=== PATIENT | female | born 1955 | race Caucasian/White ===

== ENCOUNTER → 2019-12-02 | Outpatient (CLI) | payer MEDICARE, OTHER, SELFPAY ==
--- NOTE | 2019-12-02 13:30 | EMB_PTH ---
PATIENT: SHITAL PACHECO [facility] U[facility][id number] AGE/SX: 64/F ROOM: RE12/02/[address]: Dr. 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 AM:casey 12/04/19 COMMENT Case has been reviewed in consultation with Dr. Hylton who concurs with the above diagnosis. IDC:SJ MICROSCOPIC DESCRIPTION Slides are reviewed. GROSS DESCRIPTION Received in fixative is one container labeled with the patient's name and designated EM biopsy. The specimen consists of multiple fragments of hemorrhagic soft tissue that in aggregate measure 3 x 2.5 x 0.3 cm. The specimen is totally submitted in one cassette. / SJ:rg 12/03/19 TC:5 CPT: 20827
== END | disposition home or self-care (01) ==
LOC: LABSPEC 15:12
PROVIDERS: Referring Provider Obstetrics & Gynecology; Visit Provider Obstetrics & Gynecology
DX: N95.0 Postmenopausal bleeding (principal)
CPT/HCPCS: 88305

== ENCOUNTER → 2020-01-14 10:30 | Outpatient (CLI) | payer MEDICARE, OTHER, SELFPAY ==
--- NOTE | 2020-01-14 11:15 | EKG12_ITS ---
Test Reason : PRE OP Blood Pressure : / mmHG Vent. Rate : 070 BPM Atrial Rate : 070 BPM P-R Int : 178 ms QRS Dur : 088 ms QT Int : 396 ms P-R-T Axes : 044 -62 046 degrees QTc Int : 427 ms Normal sinus rhythm with sinus arrhythmia Left anterior fascicular block Abnormal ECG Confirmed by DONOVAN LAGUNAS, PAULO ([id number]), editor continuity and script CHYNA ROA ([id number]) on 01/18/2020 2:09:46 PM Referred By: Jovanny Mcgee Confirmed By:ANCELMO MAN MD
[2020-01-14 11:23] LABS: Hematocrit 41.6 % (37-47); Hemoglobin 13.7 g/dL (12.0-15.0); Mean Corp Hgb Conc 32.9 g/dL (32-36); Mean Corpuscular Hgb 31.9 pg (27.0-32.0); Mean Platelet Vol. 9.4 fl (6.2-12.0); Platelet Count 271 K/mm3 (150-450); RBC Distribution Width CV 13.4 % (11.6-14.6); RBC Distribution Width SD 47.2 fl (35.1-43.9); Red Blood Count 4.29 M/mm3 (4.2-5.4); White Blood Count 4.9 K/mm3 (4.4-11.0)
[2020-01-14 11:32] LABS: Prothrombin Time (Protime)PT. 12.4 SECONDS (11.7-14.9)
[2020-01-14 11:33] LABS: Partial Thromboplast Time 21.9 Seconds (24.1-36.2)
[2020-01-14 11:54] LABS: AST(SGOT) 22 U/L (15-37); Alanine Aminotransfer ALT/SGPT 35 U/L (13-56); Alkaline Phosphatase 61 U/L (45-117); Anion Gap 5 (5-15); BUN 14 mg/dL (7-18); BUN/Creat Ratio 17.9 RATIO (10-20); Calcium,Total 9.5 mg/dL (8.5-10.1); Chloride 106 mmol/L (98-107); Creatinine, Serum 0.78 mg/dL (0.55-1.02); EST Glomerular Filtration Rate 78 mL/min (>60); Est Glom Filt Rate - Afr Amer 95 mL/min (>60); Globulin 3.9 g/dL (2.2-4.2); Glucose 113 mg/dL (74-106); Potassium 4.3 mmol/L (3.5-5.1); Protein, Total 7.9 g/dL (6.4-8.2); Sodium Level 141 mmol/L (136-145)
== END ==
PROVIDERS: PCP Nurse Practitioner Family; Referring Provider Obstetrics & Gynecology; Visit Provider Obstetrics & Gynecology
DX: Z01.818 Encounter for other preprocedural examination (principal)
CPT/HCPCS: 36415; 80053; 85027; 85610; 85730; 86850; 86900; 86901; 93005

== ENCOUNTER → 2020-01-20 13:54 | Outpatient (CLI) | payer MEDICARE, OTHER, SELFPAY ==
[2020-01-15 13:15] VITALS: BMI 45.6
--- NOTE | 2020-01-20 13:55 | ECHOD_ITS ---
Reason For Study: PRE OP EXAM Procedure This was a 2D Doppler, Color Flow transthoracic echocardiogram. Exam performed in department. Left Ventricle Normal size and thickness. The estimated ejection fraction is 65 %. Stage 1 diastolic dysfunction. No regional wall motion abnormalities noted. Right Ventricle Normal size and thickness. Normal systolic function. Atria Normal left atrium. Normal right atrium. Normal atrial septum. Mitral Valve The mitral valve is structurally normal. No prolapse or stenosis seen. Tricuspid Valve Normal tricuspid valve. Unable to estimate RV systolic pressure due to insufficient tricuspid regurgitant envelope. Aortic Valve Normal aortic valve. Trisinus/trileaflet aortic valve. Pulmonic Valve Normal pulmonic valve. Trivial pulmonic valve insufficiency. Great Vessels Normal aortic root. Normal arch. Normal inferior vena cava. Inferior vena cava collapse with sniff. Pericardium/Pleural No pericardial effusion. MMode/2D Measurements & Calculations LVIDd: 5.5 cm IVSd: 0.96 cm Ao root diam: 3.1 cm LVIDs: 3.9 cm LVPWd: 0.99 cm RVDd: 2.9 cm FS: 28.4 % LAV(MOD-bp): 55.1 ml LA A4 area: 18.9 cm2 LA dimension(2D): 2.9 cm LAV(MOD-bp) Indexed: 23.9 ml/m2 LAV(MOD-sp2): 56.2 ml LAV(MOD-sp4): 55.0 ml RA A4 area: 14.7 cm2 Time Measurements MV dec time: 0.21 sec Doppler Measurements & Calculations MV E max santiago: 48.2 cm/sec Lat Peak E' Santiago: 7.0 cm/sec Med Peak E' Santiago: 4.8 cm/sec MV A max santiago: 61.6 cm/sec E/E' lat: 6.8 E/E' med: 10.0 MV E/A: 0.78 Ao V2 max: 119.0 cm/sec LV V1 max: 106.7 cm/sec PA V2 max: 86.1 cm/sec Ao max P.7 mmHg LV V1 max P.6 mmHg Ao V2 mean: 87.8 cm/sec LV V1 mean P.5 mmHg Ao mean P.3 mmHg LV V1 mean: 75.5 cm/sec Ao V2 VTI: 24.0 cm LV V1 VTI: 21.6 cm Interpretation Summary The estimated ejection fraction is 65 %. Stage 1 diastolic dysfunction. Unable to estimate RV systolic pressure due to insufficient tricuspid regurgitant envelope. The study was technically difficult. There is no comparison study available. Ordering Physician: Ward Teague Referring Physician: Nicki John Performed By: Colleen Aragon RDCS, RVT
== END ==
PROVIDERS: PCP Nurse Practitioner Family; Referring Provider Internal Medicine Cardiovascular Disease; Visit Provider Internal Medicine Cardiovascular Disease
DX: Z01.810 Encounter for preprocedural cardiovascular examination (principal); I44.4 Left anterior fascicular block; R94.31 Abnormal electrocardiogram [ECG] [EKG]
CPT/HCPCS: 93306

== ENCOUNTER → 2020-01-25 12:16 | Outpatient (CLI) | payer MEDICARE, OTHER, SELFPAY ==
[2020-01-15 13:15] VITALS: BMI 45.6
--- NOTE | 2020-01-25 12:17 | STEWCON_ITS ---
Reason For Study: PREOPERATIVE Stress Results Protocol: Casey Protocol WITH DEFINITY Maximum Predicted HR: 155 bpm Target HR: 132 bpm % Maximum Predicted HR: 86 % DurationHeart Rate Stage (mm:ss) (bpm) BP Comment BASELINE 79 130/824 CC DEFINITY STAGE 1 3:00 133 158/90SOB STAGE 2 0:15 133 / INCREASED SOB RECOVERY 84 120/82 Stress Duration: 3:15 mm:ss Maximum Stress HR: 133 bpm Baseline Echocardiogram Findings The estimated ejection fraction is 65 %. Stress Echo Wall motion Data Resting WM Intermediate WM Stress WM Resting Wall Motion Wall Motion Stress No regional wall motion Posterior-Basal: Mildly abnormalities noted. hypokinetic. Infero-Basal: Mildly hypokinetic. EKG Data The baseline ECG displays normal sinus rhythm. The patient exercised according to the regular Casey protocol for a total duration of 3:16. The maximum heart rate attained was 134 beats per minute. This was 86% of maximum predicted heart rate. The patient exercised into stage 2 of the Casey protocol. During stress, there were no ST or T wave changes noted to suggest ischemia. No clinical angina was noted. No arrhythmias noted. Interpretation Summary The estimated ejection fraction is 65 %. Posterior-Basal: Mildly hypokinetic Infero-Basal: Mildly hypokinetic Abnormal, adequate, treadmill echocardiogram. Positive for ischemia by echocardiographic criteria. No EKG evidence of ischemia. Patient appeared to develop mild inferior posterior hypokinesis at peak exercise. Poor exercise capacity for age. Appropriate blood pressure response to exercise. Test terminated due to the attainment of target heart rate and dyspnea. Final LVEF of 55%. Poor echo windows requiring Definity agent make interpretation problematic. Patient tolerated the procedure well. The study was technically difficult. Contrast injection was performed. Ordering Physician: Ward Teague Referring Physician: Ward Teague Performed By: Brittany Garcia, EMETERIO, RVT
== END ==
PROVIDERS: PCP Nurse Practitioner Family; Referring Provider Internal Medicine Cardiovascular Disease; Visit Provider Internal Medicine Cardiovascular Disease
DX: Z01.810 Encounter for preprocedural cardiovascular examination (principal); I44.4 Left anterior fascicular block; R94.31 Abnormal electrocardiogram [ECG] [EKG]
CPT/HCPCS: 93017; 93350; Q9957; A4216; C8928

== ENCOUNTER 2020-01-29 06:46 | Day surgery (SDC) | payer MEDICARE, OTHER, SELFPAY ==
--- NOTE | 2020-01-15 01:38 | HP_ITS ---
HPI HPI History of Present Illness Surgical H&P: Yes Details: Mrs. Schmitz is a very pleasant 64-year-old female, nondiabetic, nonhypertensive, lifelong non-smoker, no significant cholesterol and no known coronary disease in the past who was referred to us for cardiac re- stratification for robotic hysterectomy with BSO due to PMB, simple hyperplasia. She was seen in [facility] on 01/14/2020 and EKG was performed which showed left anterior hemiblock and no previous EKGs. On further history she is a nondiabetic, nonhypertensive, no previous coronary history and is on estrogen replacement therapy only. Of note she is G 11, P7, premature 1, induced 0, spontaneous abortions 3. The EKG in question took place on 01/14/2020 which showed normal sinus rhythm, left axis deviation, left anterior hemiblock, no previous myocardial infarction noted. On further history, the patient states that she has had progressively worsening dyspnea on exertion and shortness of breath over the last 6 to 12 months. In addition she complains of slight lower extremity edema on the left side only. She has no positive family history of premature coronary artery disease. Patient does complain of chest tightness when she gets anxious, but not with exertion. She did have bilateral knee surgery 2 years ago and reports that she had an EKG at that time but apparently this was unavailable at the time of her preop testing. In addition the patient complains of snoring, daytime somnolence, but is never had a sleep study. She denies ever having a CVA. In our office today her blood pressure is 120/60, pulse is 80 and regular. Her physical exam demonstrates clear lungs bilaterally, regular rate and rhythm, normal S1/S2, no S3, S4 or murmurs are detected. She has 2+ carotid upstroke bilaterally and no carotid bruits. She has no edema. Lipids are pending. EKG is as above. Intake Vital Signs 01/15/20 Height 5 ft 6 in 01/15/20 Weight: 283 lb 01/15/20 BMI 45.6 01/15/20 BP 120/60 01/15/20 Blood Pressure Location Lt brachial 01/15/20 Position Sitting 01/15/20 Respiration 20 H 01/15/20 Pulse 80 01/15/20 Pulse Source Auscultation Intake Visit Reasons: ABN EKG, SURGERY (Delisa BECERRA) Allergies No Known Allergies Allergy (Verified 01/15/20 09:23) Medications Biotin 10,000 mcg PO DAILY 01/13/20 [History Confirmed 01/14/20] Calcium Carb/D3/Magnesium/Zinc [Rwuyosk-Ygq-Fpts-Vit D Tablet] 2 ea PO DAILY 01/13/20 [History Confirmed 01/14/20] Cholecalciferol (Vitamin D3) [Vitamin D3] 10,000 unit PO DAILY 01/13/20 [History Confirmed 01/14/20] Warren-3/Dha/Epa/Fish Oil [Warren 3 500 Softgel] 1 ea PO DAILY 01/13/20 [History Confirmed 01/14/20] Potassium (Otc) [Potassium Otc] 198 mg PO DAILY 01/13/20 [History Confirmed 01/14/20] Vit C/E/Zn/Coppr/Lutein/Zeaxan [Preservision Areds 2 Softgel] 1 ea PO DAILY 01/13/20 [History Confirmed 01/14/20] Vitamin B Complex 2 ea PO DAILY 01/13/20 [History Confirmed 01/14/20] Vitamin E 1,200 units PO DAILY 01/13/20 [History Confirmed 01/14/20] aspirin 81 mg tablet,delayed release 81 mg PO DAILY 01/13/20 [History Confirmed 01/14/20] medroxyprogesterone 10 mg tablet 10 mg PO .COMPLEX 01/15/20 [History Confirmed 01/15/20] [facility] Medical History (Updated 01/15/20 @ 13:25 by Eden Mclain) Pre-operative cardiovascular exam, new EKG abnormalities c/w ischemia (Acute) Left anterior fascicular block (Acute) Abnormal EKG (Acute) Hyperlipidemia (Chronic) Surgical History (Updated 01/15/20 @ 09:29 by Eden Mclain) History of (Chronic 08/09/90) History of bilateral knee arthroplasty (Chronic 08/2016) History of hernia repair (Chronic 1989) Family History (Updated 01/15/20 @ 09:25 by Eden Mclain) Mother Breast cancer Social History (Updated 01/15/20 @ 13:[address] Ward Teague MD) Smoking Status: Never smoker ROS Const Const: Negative for fatigue, weakness, body ache, fever(s), headache(s), chills, frequent falls, night sweats, daytime sleepiness, difficulty sleeping, excessive sweating, weight gain, weight loss, increased appetite, poor appetite, anorexia or other Eyes Eyes: Negative for blind spots, loss of peripheral vision, transient loss of vision, blurry vision, change in vision, double vision, floaters, tunnel vision or other ENT ENT: Negative for headache(s), dizziness, hearing loss, tinnitus, Nosebleed/epistaxis, balance problems, post nasal drip, lip swelling, tongue swelling, bleeding gums, hoarseness, neck pain, dry mouth or other Cardio Chest Pain: No Resp Respiratory: Negative for SOB with activity, SOB at rest, SOB orthopnea\SOB lying down, Coughing up blood/hemoptysis, chest congestion, pain on inspiration, snoring, stridor, wheezing, crackles, paroxysmal nocturnal dyspnea or other GI GI: Negative nausea, vomiting, heartburn, constipation, belching, bloating, cramping, vomiting blood/hematemesis, bright, red blood in stools, black,tarry stools, loose stools, Difficulty Swallowing or other : Negative for hematuria, frequent nighttime urination/ nocturia, erectile dysfunction or abnormal vaginal bleeding Musc Musc: Negative for muscle aches/ myalgia, muscle weakness, joint pain or balance problems Skin Skin: Negative redness, non-healing lesions, rash, unusual bruising, skin ulcer, wounds, jaundice or other Neuro Neuro: Negative for dizziness, lightheadedness, near syncope, syncope, orthostatic symptoms, frequent falls, headache(s), weakness, confusion, memory loss, restless legs, blurry vision, double vision, vertigo, seizures, lack of coordination or other Panfilo Hematologic/Lymphatic: Negative for easy bleeding, easy bruising, enlarged lymph nodes or other Endo Endo: Negative for fatigue, cold intolerance, heat intolerance, excessive sweating, flushing, increased thirst/drinking, increased hunger, hair loss, hair growth or other Psych Psych: Negative for anxiety, depression, thoughts of harming anyone, thoughts of harming yourself, visual hallucinations, panic attacks or audible hallucinations Allergy Allergy/Immunology: Negative for throat swelling, Negative for tongue swelling, Negative for hives, Negative for rash, Negative for lip swelling Cardiology Exam Const Appearance: cooperative, healthy appearing and no acute distress Nutritional Appearance: well nourished Orientation: alert, oriented x3 and oriented to person Head Head: normal to inspection, normocephalic and atraumatic Nose: external nose normal Face and Sinus: face symmetric Mouth: oral mucosae normal Eyes General: appearance normal, both eyes and all related structures Eyelids: eyelids normal Conjunctivae: conjunctivae normal Pupils: PERRL and normal by confrontation EOM: EOM intact bilaterally Neck Neck: normal visual inspection and full ROM Carotids: normal carotid upstroke Chest Chest inspection: normal inspection of the chest Auscultation: Bilateral: Clear to Auscultation Cardio Palpation: normal PMI Rate: regular rate Rhythm: regular rhythm Heart sounds: S1 normal and S2 normal GI GI: normal to inspection, no hepatosplenomegaly and bowel sounds present Neuro General: alert, awake, oriented x3, CN's II-XI intact bilaterally and moves all extremities Skin Skin: no rashes or lesions noted Extremities Pulses: Normal: Right Femoral Pulse, Left Femoral Pulse, Right Dorsalis Pedis Pulse, Left Dorsalis Pedis Pulse, Right Posterior Tibial Pulse, Left Posterior Tibial Pulse, Right Radial Pulse, Left Radial Pulse Lower Extremity Edema: None: Bilateral Psych Psychological: normal affect Assessment & Plan 1. Pre-operative cardiovascular exam, new EKG abnormalities c/w ischemia Z01.810; R94.31 Plan 1. Preoperative stratification: The patient has had progressively worsening dyspnea on exertion over the last 6 months to a year, trivial unilateral lower extremity edema, no exertional anginal symptoms, abnormal EKG with newly discovered left anterior hemiblock, and need for robotic hysterectomy with BSO. Given the patient signs and symptoms and risk factors I recommend that she undergo a 2D echo with Doppler to evaluate her LV function, pulmonary pressures and valvular status. In addition I recommend that she undergo a treadmill echocardiogram to assess her exercise capacity, blood pressure response to exercise, and evaluation of ischemia. If either 1 of these are grossly abnormal, the patient may require diagnostic coronary angiogram. If her stress test is negative however for inducible ischemia should be deemed at low risk for noncardiac surgery. Her left anterior hemiblock may be an electrical phenomenon only and may not materially impact on the patient's cardiac condition. In addition after her surgeries been completed I recommend that she undergo a sleep study as she has signs and symptoms of possible undiagnosed and untreated obstructive sleep apnea. Orders Orders: Echo Complete Today Dr. Ward Teague MD Stress Test Echo W/Contrast Today Dr. Ward Teague MD 2. Hyperlipidemia E78.5 Plan 2. Hyperlipidemia: We will obtain a fasting lipid profile. Would recommend treating her LDL of greater than 130. 3. Return office in 6 months. This note was generated using a voice recognition system and there may be incorrect words, spelling or punctuation that were not noted when reviewing the office note prior to saving. Orders Orders: Lipid Profile Today Dr. Ward Teague MD Liver Profile Today Dr. Ward Teague MD Plan Detail Other Orders Orders: Echo Complete Today I44.4 Dr. Ward Teague MD Stress Test Echo W/Contrast Today I44.4 Dr. Ward Teague MD Polysomnography 2 Months G47.10, I44.4 Dr. Ward Teague MD Other Medications On Hold: medroxyprogesterone (Provera) Hold Comment: for surgery 10 mg PO 1 tablet daily the first 12 days of each month; Eden A Rayne aspirin Hold Comment: for surgery 81 mg PO DAILY Eden A Rayne Follow Up +6M (Ho) Coding Level of Care Code Off vis,est,level 4 Diagnoses Pre-operative cardiovascular exam, new EKG abnormalities c/w ischemia Z01.810; R94.31 Hyperlipidemia E78.5 Coding Level of Care Code Off vis,est,level 4 Diagnoses Pre-operative cardiovascular exam, new EKG abnormalities c/w ischemia Z01.810; R94.31 Hyperlipidemia E78.5 01/15/20 1338 <Electronically signed by Ward Teague MD> Date _ Ward Teague MD
[2020-01-15 13:15] VITALS: BMI 45.6
[2020-01-26 13:11] VITALS: BMI 45.6
--- NOTE | 2020-01-26 13:28 | RAD_ITS ---
STUDY: X-RAY CHEST REASON FOR EXAM: Female, 64 years old. Pre heart cath, pt. states having chest tightness, abnormal stress test and EKG TECHNIQUE: PA and lateral views of the chest. COMPARISON: None. FINDINGS: The lungs are clear and expanded. Scattered calcified granulomas. There is no demonstrated pleural abnormality. Normal size heart. Normal mediastinum and barbra. Normal visualized pulmonary arteries. Normal visualized aortic arch and descending thoracic aorta. There are diffuse degenerative changes of the visualized thoracic spine. Mild dextroscoliosis. Normal visualized ribs, clavicles, and shoulders. There is no demonstrated abnormality of the visualized soft tissue structures of the upper abdomen. RAD/Chest PA and Lateral IMPRESSION: No acute abnormality is seen. Electronically Signed: Hilario Strickland, at 13:48 EDT , Service support ,
[2020-01-28 09:48] VITALS: BMI 45.6
--- NOTE | 2020-01-29 09:09 | CL.D_ITS ---
Patient Name: SHITAL PACHECO Study Date: 01/29/2020 Performing: Ward Teague MD Ht: 66.14 inches 168 cm : 1955 Wt: 282.19 lbs 128 kg Age: 64 Gender: female BSA: 2.32 PROCEDURE(S) PERFORMED AH59-RLK/COR/LV CLINICAL PROFILE AND INDICATIONS Indications: Suspected CAD Heart Failure: None Stress/Imaging Date: 01/25/2020Stress Echocardiogram: Positive Low Risk Angina Classification Anginal Classification w/in 2 Weeks: Anginal Equivalent Dyspnea CAD Presentations: Other: Dyspnea on exertion Comorbidities/Risk Factors: Hypertension CONCLUSIONS Normal coronary arteries Normal LV size, wall motion,and systolic function Normal Left Ventricular systolic function LVEF: by LV gram 65 % Elevated Left Ventricular End Diastolic Pressure RECOMMENDATIONS Management as per referring Plant Hr Manager Start lasix 20mg po daily for elevated LVEDP and dyspnea. Pt is at low risk for non-cardiac surgery. Consider sleep study for possible MARIAM. DESCRIPTION OF PROCEDURE The patient arrived to the procedure lab. The risks and benefits of the procedure as well as a full d escription of our services here and current unavailability of surgical backup were fully explained to the patient and/or their significant other prior to the catheterization. The Timeout was completed, verifying the correct patient and procedure. The patient's procedural site was prepped and draped in the usual fashion. Local anesthetic was given subcutaneously to right radial region with Lidocaine 2% . Using a modified Seldinger technique, arterial access was obtained via the right radial artery, a 6 Fr sheath was inserted. Left Coronary Artery selective angiography was performed in multiple views u sing a 5 Fr. 4.0 [place] catheter. Right Coronary Artery selective angiography was then performed in mu ltiple views using a 5 Fr. 4.0 [place] catheter. Left Ventriculography was performed in PACE projection using a 5 Fr. Pigtail catheter. LV to AO pullback pressures were then recorded.The arterial sheath was pulled and a TR Band was applied for hemostasis-12 cc air CORONARY ANGIOGRAPHY DOMINANCE: Right Dominant LEFT HEART ASSESSMENT Left Ventricular Ejection Fraction: by LV Gram 65 % Normal LV wall motion Normal Left Ventricular systolic function Normal Left Ventricular systolic function LVEDP: 25 mmHg LEFT MAIN: Angiographically normal LEFT ANTERIOR DESCENDING ARTERY: Angiographically normal CIRCUMFLEX ARTERY: Angiographically normal RIGHT CORONARY ARTERY: Angiographically normal COMPLICATIONS No Complications PROCEDURE MEDICATIONS Versed 1 mg IV Fentanyl 50 mcg IV Oxygen: 2 L/min via nasal cannula Heparin diluted in 23cc Heparinized saline. Patient given 10cc IA of this solution. 01/29/2020 08:43: 09 Verapamil 2.5mg, Ntg 100mcgs, 2000 units of Heparin diluted in 23cc Heparinized saline. Patient give n 10cc IA of this solution. 01/29/2020 08:43:09 SUMMARY OF HEMODYNAMIC DATA Time AIR REST ECG 08:26:18 AO 141/80 (106) SA 08:46:03 LV 143/0, 23 08:53:49 LV 147/-5, 27 08:53:56 LVp 146/-5, 28 08:54:07 AOp 140/79 (107) 08:54:12 Signed By Ward Teague MD On 01/29/2020 09:08:18 Ward Teague MD
== END 2020-01-29 10:40 | disposition home or self-care (01) ==
PROVIDERS: PCP Nurse Practitioner Family; Referring Provider Internal Medicine Cardiovascular Disease; Visit Provider Internal Medicine Cardiovascular Disease
DX: R07.89 Other chest pain (principal); R94.31 Abnormal electrocardiogram [ECG] [EKG]; I10 Essential (primary) hypertension; E78.5 Hyperlipidemia, unspecified; Z79.82 Long term (current) use of aspirin; Z79.899 Other long term (current) drug therapy
CPT/HCPCS: 71046; 93458; 99152; 99153; J7040; Q9967; C1769; C1894

== ENCOUNTER 2020-02-26 05:26 | Day surgery (SDC) | payer MEDICARE, OTHER, SELFPAY ==
--- NOTE | 2020-01-15 01:38 | HP_ITS ---
HPI HPI History of Present Illness Surgical H&P: Yes Details: Mrs. Schmitz is a very pleasant 64-year-old female, nondiabetic, nonhypertensive, lifelong non-smoker, no significant cholesterol and no known coronary disease in the past who was referred to us for cardiac re- stratification for robotic hysterectomy with BSO due to PMB, simple hyperplasia. She was seen in [facility] on 01/14/2020 and EKG was performed which showed left anterior hemiblock and no previous EKGs. On further history she is a nondiabetic, nonhypertensive, no previous coronary history and is on estrogen replacement therapy only. Of note she is G 11, P7, premature 1, induced 0, spontaneous abortions 3. The EKG in question took place on 01/14/2020 which showed normal sinus rhythm, left axis deviation, left anterior hemiblock, no previous myocardial infarction noted. On further history, the patient states that she has had progressively worsening dyspnea on exertion and shortness of breath over the last 6 to 12 months. In addition she complains of slight lower extremity edema on the left side only. She has no positive family history of premature coronary artery disease. Patient does complain of chest tightness when she gets anxious, but not with exertion. She did have bilateral knee surgery 2 years ago and reports that she had an EKG at that time but apparently this was unavailable at the time of her preop testing. In addition the patient complains of snoring, daytime somnolence, but is never had a sleep study. She denies ever having a CVA. In our office today her blood pressure is 120/60, pulse is 80 and regular. Her physical exam demonstrates clear lungs bilaterally, regular rate and rhythm, normal S1/S2, no S3, S4 or murmurs are detected. She has 2+ carotid upstroke bilaterally and no carotid bruits. She has no edema. Lipids are pending. EKG is as above. Intake Vital Signs 01/15/20 Height 5 ft 6 in 01/15/20 Weight: 283 lb 01/15/20 BMI 45.6 01/15/20 BP 120/60 01/15/20 Blood Pressure Location Lt brachial 01/15/20 Position Sitting 01/15/20 Respiration 20 H 01/15/20 Pulse 80 01/15/20 Pulse Source Auscultation Intake Visit Reasons: ABN EKG, SURGERY (Delisa BECERRA) Allergies No Known Allergies Allergy (Verified 01/15/20 09:23) Medications Biotin 10,000 mcg PO DAILY 01/13/20 [History Confirmed 01/14/20] Calcium Carb/D3/Magnesium/Zinc [Rihfvma-Szr-Rnqn-Vit D Tablet] 2 ea PO DAILY 01/13/20 [History Confirmed 01/14/20] Cholecalciferol (Vitamin D3) [Vitamin D3] 10,000 unit PO DAILY 01/13/20 [History Confirmed 01/14/20] Lavon-3/Dha/Epa/Fish Oil [Lavon 3 500 Softgel] 1 ea PO DAILY 01/13/20 [History Confirmed 01/14/20] Potassium (Otc) [Potassium Otc] 198 mg PO DAILY 01/13/20 [History Confirmed 01/14/20] Vit C/E/Zn/Coppr/Lutein/Zeaxan [Preservision Areds 2 Softgel] 1 ea PO DAILY 01/13/20 [History Confirmed 01/14/20] Vitamin B Complex 2 ea PO DAILY 01/13/20 [History Confirmed 01/14/20] Vitamin E 1,200 units PO DAILY 01/13/20 [History Confirmed 01/14/20] aspirin 81 mg tablet,delayed release 81 mg PO DAILY 01/13/20 [History Confirmed 01/14/20] medroxyprogesterone 10 mg tablet 10 mg PO .COMPLEX 01/15/20 [History Confirmed 01/15/20] [facility] Medical History (Updated 01/15/20 @ 13:25 by Eden Mclain) Pre-operative cardiovascular exam, new EKG abnormalities c/w ischemia (Acute) Left anterior fascicular block (Acute) Abnormal EKG (Acute) Hyperlipidemia (Chronic) Surgical History (Updated 01/15/20 @ 09:29 by Eden Mclain) History of (Chronic 08/09/90) History of bilateral knee arthroplasty (Chronic 08/2016) History of hernia repair (Chronic 1989) Family History (Updated 01/15/20 @ 09:25 by Eden Mclain) Mother Breast cancer Social History (Updated 01/15/20 @ 13:[address] Ward Teague MD) Smoking Status: Never smoker ROS Const Const: Negative for fatigue, weakness, body ache, fever(s), headache(s), chills, frequent falls, night sweats, daytime sleepiness, difficulty sleeping, excessive sweating, weight gain, weight loss, increased appetite, poor appetite, anorexia or other Eyes Eyes: Negative for blind spots, loss of peripheral vision, transient loss of vision, blurry vision, change in vision, double vision, floaters, tunnel vision or other ENT ENT: Negative for headache(s), dizziness, hearing loss, tinnitus, Nosebleed/epistaxis, balance problems, post nasal drip, lip swelling, tongue swelling, bleeding gums, hoarseness, neck pain, dry mouth or other Cardio Chest Pain: No Resp Respiratory: Negative for SOB with activity, SOB at rest, SOB orthopnea\SOB lying down, Coughing up blood/hemoptysis, chest congestion, pain on inspiration, snoring, stridor, wheezing, crackles, paroxysmal nocturnal dyspnea or other GI GI: Negative nausea, vomiting, heartburn, constipation, belching, bloating, cramping, vomiting blood/hematemesis, bright, red blood in stools, black,tarry stools, loose stools, Difficulty Swallowing or other : Negative for hematuria, frequent nighttime urination/ nocturia, erectile dysfunction or abnormal vaginal bleeding Musc Musc: Negative for muscle aches/ myalgia, muscle weakness, joint pain or balance problems Skin Skin: Negative redness, non-healing lesions, rash, unusual bruising, skin ulcer, wounds, jaundice or other Neuro Neuro: Negative for dizziness, lightheadedness, near syncope, syncope, orthostatic symptoms, frequent falls, headache(s), weakness, confusion, memory loss, restless legs, blurry vision, double vision, vertigo, seizures, lack of coordination or other Panfilo Hematologic/Lymphatic: Negative for easy bleeding, easy bruising, enlarged lymph nodes or other Endo Endo: Negative for fatigue, cold intolerance, heat intolerance, excessive sweating, flushing, increased thirst/drinking, increased hunger, hair loss, hair growth or other Psych Psych: Negative for anxiety, depression, thoughts of harming anyone, thoughts of harming yourself, visual hallucinations, panic attacks or audible hallucinations Allergy Allergy/Immunology: Negative for throat swelling, Negative for tongue swelling, Negative for hives, Negative for rash, Negative for lip swelling Cardiology Exam Const Appearance: cooperative, healthy appearing and no acute distress Nutritional Appearance: well nourished Orientation: alert, oriented x3 and oriented to person Head Head: normal to inspection, normocephalic and atraumatic Nose: external nose normal Face and Sinus: face symmetric Mouth: oral mucosae normal Eyes General: appearance normal, both eyes and all related structures Eyelids: eyelids normal Conjunctivae: conjunctivae normal Pupils: PERRL and normal by confrontation EOM: EOM intact bilaterally Neck Neck: normal visual inspection and full ROM Carotids: normal carotid upstroke Chest Chest inspection: normal inspection of the chest Auscultation: Bilateral: Clear to Auscultation Cardio Palpation: normal PMI Rate: regular rate Rhythm: regular rhythm Heart sounds: S1 normal and S2 normal GI GI: normal to inspection, no hepatosplenomegaly and bowel sounds present Neuro General: alert, awake, oriented x3, CN's II-XI intact bilaterally and moves all extremities Skin Skin: no rashes or lesions noted Extremities Pulses: Normal: Right Femoral Pulse, Left Femoral Pulse, Right Dorsalis Pedis Pulse, Left Dorsalis Pedis Pulse, Right Posterior Tibial Pulse, Left Posterior Tibial Pulse, Right Radial Pulse, Left Radial Pulse Lower Extremity Edema: None: Bilateral Psych Psychological: normal affect Assessment & Plan 1. Pre-operative cardiovascular exam, new EKG abnormalities c/w ischemia Z01.810; R94.31 Plan 1. Preoperative stratification: The patient has had progressively worsening dyspnea on exertion over the last 6 months to a year, trivial unilateral lower extremity edema, no exertional anginal symptoms, abnormal EKG with newly discovered left anterior hemiblock, and need for robotic hysterectomy with BSO. Given the patient signs and symptoms and risk factors I recommend that she undergo a 2D echo with Doppler to evaluate her LV function, pulmonary pressures and valvular status. In addition I recommend that she undergo a treadmill echocardiogram to assess her exercise capacity, blood pressure response to exercise, and evaluation of ischemia. If either 1 of these are grossly abnormal, the patient may require diagnostic coronary angiogram. If her stress test is negative however for inducible ischemia should be deemed at low risk for noncardiac surgery. Her left anterior hemiblock may be an electrical phenomenon only and may not materially impact on the patient's cardiac condition. In addition after her surgeries been completed I recommend that she undergo a sleep study as she has signs and symptoms of possible undiagnosed and untreated obstructive sleep apnea. Orders Orders: Echo Complete Today Dr. Ward Teague MD Stress Test Echo W/Contrast Today Dr. Ward Teague MD 2. Hyperlipidemia E78.5 Plan 2. Hyperlipidemia: We will obtain a fasting lipid profile. Would recommend treating her LDL of greater than 130. 3. Return office in 6 months. This note was generated using a voice recognition system and there may be incorrect words, spelling or punctuation that were not noted when reviewing the office note prior to saving. Orders Orders: Lipid Profile Today Dr. Ward Teague MD Liver Profile Today Dr. Ward Teague MD Plan Detail Other Orders Orders: Echo Complete Today I44.4 Dr. Ward Teague MD Stress Test Echo W/Contrast Today I44.4 Dr. Ward Teague MD Polysomnography 2 Months G47.10, I44.4 Dr. Ward Teague MD Other Medications On Hold: medroxyprogesterone (Provera) Hold Comment: for surgery 10 mg PO 1 tablet daily the first 12 days of each month; Eden A Rayne aspirin Hold Comment: for surgery 81 mg PO DAILY Eden A Rayne Follow Up +6M (Ho) Coding Level of Care Code Off vis,est,level 4 Diagnoses Pre-operative cardiovascular exam, new EKG abnormalities c/w ischemia Z01.810; R94.31 Hyperlipidemia E78.5 Coding Level of Care Code Off vis,est,level 4 Diagnoses Pre-operative cardiovascular exam, new EKG abnormalities c/w ischemia Z01.810; R94.31 Hyperlipidemia E78.5 01/15/20 1338 <Electronically signed by Ward Teague MD> Date _ Ward Teague MD
[2020-01-28 09:48] VITALS: BMI 45.6
--- NOTE | 2020-02-25 09:46 | PCM.HP.BLA ---
History and Physical Date of Admission: 02/26/20 Surgical History and Physical Melania Schmitz, a 64 year old female 7 1 3 0 7, presents for RAVH/BSO on February 26, 2020 at 7:30. 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 Had US done at [facility] with thickened Endometrial lining present. Prior ventral hernia repair with mesh per Cameron Angelo. Additional comments are: Referred by Nicki Ruiz CNM.; Additional comments are: u/s shows 9.5 cm uterus, normal ovaries, EM thickness 2.2 mm vs cm; Additional comments are: EMBx with simple hyperplasia. MEDICATIONS HISTORY: Current medications prescribed by our practice are: 1. Provera 10 mg tablet, take 1 pill by mouth the first 12 days of each month Patient is also takin. Vitamin B Complex tablet, One pill by mouth once a day ALLERGIES: NKDA Infections - Chicken pox childhood Illnesses - Depression Accidents - None Hospitalizations - Childbirth and see surgery Review of Systems: GENERAL - Denies fever, or chills SKIN - Denies skin changes EYES - Denies visual changes EARS - Denies difficulty hearing NOSE - Denies nasal congestion or bleeding MOUTH - Denies sore throat or difficulty swallowing NECK - Denies pain or swelling RESPIRATORY - Denies shortness of breath or wheezing CARDIOVASCULAR - Denies palpitations or chest pain GASTROINTESTINAL - Denies nausea, vomiting, diarrhea, constipation GENITOURINARY - Denies dysuria, frequency of urination, incontinence of urine MUSCULOSKELETAL - Denies joint or muscle pain NEUROLOGICAL - Denies localized numbness or weakness PSYCHIATRIC - Denies depression or anxiety ENDOCRINE - Denies heat or cold intolerance, weight loss or gain HEMATO-IMMUNOLOGIC - Denies excesive bleeding with cuts SOCIAL HISTORY: Alcohol Use - denies drinking Smoking - denies smoking Diet - no special diet Lifestyle - moderate stress lifestyle and Exercise - minimal Seat Belt Use - always Employer - [employer] 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 Maternal Grandfather: Hypertension. MENSTRUAL HISTORY: LMP Known?- Postmenopausal PAST PREGNANCIES: Total Pregnancies - 11; Full Term Pregnancies - 7; Premature - 1; Abortions, Induced - 0; Abortions, Spontaneous - 3; Ectopics - 0; Multiple Births - 0; Living Children - 7 SURGICAL HISTORY: 1. 08/09/1990 ; - Distress 2. 08/2016 Bilateral Knee Repair 3. 1989 Hernia Repair PHYSICAL EXAM BP- 122/78 Sitting, Left arm, large cuff Weight- 281.14871 lbs Height- 64 inch BMI:48.33 CONSTITUTIONAL - well nourished, well developed, looks like stated age and obese SKIN - no rash or lesions HEENT - Normocephalic, atraumatic, sclerae anicteric. EOMI. NEUROLOGICAL - alert, oriented, no focal signs PSYCHIATRIC - alert, oriented to time, place, and person and mood appropriate External Genital Vagina - non-tender without lesions Urethra/Urethral Meatus - non-tender Bladder - non-tender Vagina - vaginal martinez are pink and moist without loss of rugae and no evidence of atropy Cervix - without cervical motion tenderness and has normal size and features without evident lesions Uterus - multiparous size 6 cm & wt 75-125 g and exam compromised by habitus Adnexa - clear without masses or tenderness ASSESSMENT/PLAN: 1. Postmenopausal Bleeding; simple hyperplasia EMBx with simple EM hyperplasia. Discussed need to proceed with a D and C and patient desires proceeding with RAVH/BSO. Discussed RBAs and all questions answered. Cardiac clearance received per Dr. Teague. Procedure Criteria Procedure Type: Essential Procedure Essential: Yes Criteria Statement: On 12/01/2019 the [facility] ([facility]) Public Order signed by [facility] Director Christelle Pringle M.D., regarding the Management of Non-Essential Surgeries and Procedures for the purpose of preserving Personal Protective Equipment (PPE) and critical hospital capacity and resources within [place] went into effect as of 12/02/2019 at 5:00PM. According to the [facility] Public Order: This action will remain in full force and effect until the State of Emergency declared by the Governor no longer exists or the Director of the [facility] rescinds or modifies this Order. This [facility] order stated all non-essential or elective surgeries and procedures that utilize PPE should be delayed unless there is undue risk to the current or future health of a patient. After reviewing the aforementioned [facility] Public Order and the patient's clinical case, I have determined that the scheduled procedure meets the criteria to go forward. Risk to Patient if Procedure Delayed: Risk of rapidly worsening to severe symptoms if delayed
[2020-02-26] VITALS (15 sets, daily range): BP systolic 87–128; BP diastolic 42–73; PULSE 53–75; RESP 14–18; TEMP 36.5–37.1; O2SAT 92–100; BMI 45.7
[2020-02-26] MEDS: Lactated Ringers 1,000 ML 100 ML IV ×2 (05:59→06:00)
[2020-02-26 06:03] LABS: Hematocrit 42.4 % (37-47); Hemoglobin 13.6 g/dL (12.0-15.0); Mean Corp Hgb Conc 32.1 g/dL (32-36); Mean Corpuscular Volume 96.6 fL (81-99); Mean Platelet Vol. 9.1 fl (6.2-12.0); Platelet Count 249 K/mm3 (150-450); RBC Distribution Width CV 13.1 % (11.6-14.6); RBC Distribution Width SD 46.5 fl (35.1-43.9); Red Blood Count 4.39 M/mm3 (4.2-5.4); White Blood Count 7.1 K/mm3 (4.4-11.0)
[2020-02-26 06:20] LABS: AST(SGOT) 25 U/L (15-37); Alanine Aminotransfer ALT/SGPT 34 U/L (13-56); Albumin, Serum 3.8 g/dL (3.2-5.0); Alkaline Phosphatase 62 U/L (45-117); Anion Gap 6 (5-15); BUN 21 mg/dL (7-18); BUN/Creat Ratio 23.5 RATIO (10-20); Calcium,Total 9.6 mg/dL (8.5-10.1); Chloride 104 mmol/L (98-107); Creatinine, Serum 0.89 mg/dL (0.55-1.02); EST Glomerular Filtration Rate 67 mL/min (>60); Est Glom Filt Rate - Afr Amer 81 mL/min (>60); Estimated Creatinine Clearance 58.99 ml/min; Globulin 3.7 g/dL (2.2-4.2); Glucose 119 mg/dL (74-106); Potassium 4.6 mmol/L (3.5-5.1); Protein, Total 7.5 g/dL (6.4-8.2); Sodium Level 140 mmol/L (136-145)
--- NOTE | 2020-02-26 07:30 | HYST_PTH ---
PATIENT: SHITAL PACHECO [place] [facility] [id number] AGE/SX: 64/F ROOM: RE02/26/[address]: Dr. Jovanny Mcgee MD : 1955 BED: DIS: 02/27/2020 SPEC #: [id number] RECD: 02/26/20 12:08 STATUS: MICAH ANNABELLE #: [id number] AMILCAR: 02/26/20 07:[address]: Jovanny Mcgee DEPT: SURGICAL PATHOLOGY RECD BY: Lilly Hernandez ENTERED: 02/26/20 12:53 SP TYPE: HYSTERECT OTHR DR: Nicki John, YARN DUMPER-C Tissues: Uterus, NOS Procedures: Surgery Specimen Level V HEADER OPERATION: Vaginal hysterectomy PRE-OP DIAGNOSIS: Postmenopausal bleeding, simple hyperplasia TISSUE SUBMITTED: Uterus and cervix, vaginal mucosa MICROSCOPIC DIAGNOSIS Uterus and cervix and vaginal mucosa, vaginal hysterectomy: Cervix - mild chronic cystic cervicitis and squamous metaplasia. Endometrium - disordered proliferative endometrium with focal simple endometrial hyperplasia without atypia. Endometrial polyps - simple cystic endometrial hyperplasia without atypia. Myometrium - adenomyosis. - A minute submucosal leiomyoma (0.4 cm in diameter). Vaginal mucosal tissue - fragments of squamous mucosa with reactive changes. SJ:rg 02/29/20 COMMENT Please make reference to previous specimens ([id number]) endometrium, biopsy with diagnosis of polypoid fragments of simple hyperplasia without atypia and ([id number]) endometrial biopsy with diagnosis of fragments of endometrial polyp with simple cystic hyperplasia without atypia. Case has been reviewed in consultation with Dr. Iyer who concurs with the above diagnosis. IDC:AM MICROSCOPIC DESCRIPTION Slides are reviewed. GROSS DESCRIPTION Received in fixative is one container labeled with the patient's name and designated uterus and cervix and vaginal mucosa. The specimen consists of a hysterectomy specimen consisting of uterus with cervix and detached pieces of mucosal tissue. The uterus with cervix weighs 124 gm and measures 11?x?6 x 4 cm. The serosal surface is focally ragged. The ectocervical mucosa is unremarkable. The external os is oval and patulous in contour. The endocervical canal measures 3.5 cm in length and the endocervical canal is filled with hemorrhagic mucoid tissue. Sections of the cervix reveal a few cysts filled with mucoid material. The saucer-shaped endometrial cavity measures 5.5 cm in length and up to 3.5 cm in width. One large endometrial polyp is noted involving anterior uterine wall and also the fundus of the uterus measuring 5 x 4 x 2 cm. Two sessile polyps are also noted measuring 0.3 and 0.8 cm in diameter. The rest of the endometrium is thomas, glistening and measures 0.1 cm in thickness. Sections of the uterine wall do not reveal mass lesion and measures up to 2 cm in thickness. Also present in the container are multiple fragments of thomas mucosal tissue measuring in aggregate 5 x 2 x 0.5 cm. No mucosal lesion is identified. A few instrumentation vasquez are noted. Brush And Broom Clipper sections are submitted in 21 cassettes as follows: 1 - anterior cervix, 2 - posterior cervix, 3-6 - anterior uterine wall, 7-12 - posterior uterine wall, 13 - smaller endometrial polyp with underlying uterine wall, 14-20 - larger endometrial polyp with underlying uterine wall, 21 - mucosal tissue. The entire endometrium and polyps are submitted in entirety. / NITA:casey 02/26/20 TC:5 CPT: 66588
--- NOTE | 2020-02-26 10:05 | PCM.OPRPT ---
Report of Operation Date of Procedure: 02/26/20 Pre-Operative Diagnosis: Thickened Endometrium, Simple Endometrial Hyperplasia Post-Operative Diagnosis: Thickened Endometrium, Simple Endometrial Hyperplasia, Cystocele, Rectocele Surgery/Procedure Performed:: Vaginal Hysterectomy and Anterior and Posterior Repair Description of Surgical Findings:: 10 cm uterus with cervix that protruded to within 3 cm of the vaginal introitus. Mild to moderate cystocele and rectocele which protruded 2 to 3 cm outside the introitus with general anesthesia. Open perineum. Midline incisional scar from the symphysis pubis to the ribs. avionics repair technician: Dominik Babin Type of Anesthesia:: General - Endotracheal Anesthesiologist: Sharon Mckenzie Specimen's removed: Uterus and vaginal mucosa Drains: Mandujano to straight drain; vaginal pack in place Estimated Blood Loss (mL): 200 cc Fluids Replaced: Crystalloid Description of Procedure: Surgeon: Jovanny Mcgee MD, FACOG Indications: This is a 64-year-old patient who is been having problems with simple endometrial hyperplasia. She declined long-term progesterone. Conservative measures have not been helpful. Patient had a prior section and for this reason was scheduled for a robotic assisted vaginal hysterectomy and BSO. No ovarian pathology has been present. Her prolapse did not appear to be significant in the office. She also has a history of prior midline incision and a large mesh placed in a large portion of her anterior abdominal wall. She has been counseled regarding the risk and indications of this procedure including the possibility of bleeding, infection, and injury to surrounding structures such as bowel bladder. All questions were answered. Procedure: Patient was taken to the operating room where after induction of general anesthesia she was placed in the dorsal lithotomy position and prepped and draped in the usual sterile fashion. A Mandujano catheter was placed. Anterior cervix was grasped with a tenaculum and the cervix was noted to protrude within about 3 cm of the introitus. There is also a rather large open perineum and significant rectocele. Given this it was thought that a vaginal hysterectomy was feasible especially in light of the significant issues that could be encountered with the abdominal mesh. Anterior cervix circumscribed with cautery on a setting of 35 W coagulation. Anterior vaginal mucosa was undermined and anterior peritoneum was entered after 2 pedicle bites were taken on the sides of the uterine cervix. The posterior aspect of the cervix was circumscribed with a knife and posterior peritoneum easily entered. Progressive bites were taken on either side of the uterine cervix and each pedicle ligated with 0 Vicryl suture. Superior pedicles were ligated ?2 with 0 Vicryl suture and sidewall pedicles were examined and oversewn where necessary with [id number] 0 Vicryl suture to achieve hemostasis. Posterior vaginal cuff was oversewn with running locked 0 Vicryl suture. Hemostasis was noted and peritoneum was closed in a pursestring fashion incorporating superior pedicles into the stitch. Vaginal cuff was then closed front to back with running locked 0 Vicryl suture. Hemostasis was noted. Attention was turned toward the anterior repair portion of the procedure. Anterior vaginal mucosa was undermined and divided and then imbricated toward the midline with interrupted 0 Vicryl sutures. Vaginal mucosa was trimmed and then closed with interrupted 2-0 chromic suture. Vaginal cuff was then closed front to back with interrupted [id number] 0 Vicryl suture. Hemostasis was noted. Attention was turned toward the posterior repair portion of the procedure. Remnants of the hymenal ring were grasped with Allises and a V-shaped incision was made in the perineum. Rectovaginal mucosa was then undermined divided and then imbricated toward the midline with interrupted 0 Vicryl suture. Vaginal mucosa was trimmed and then closed with running locked 2-0 chromic suture. Remnants of the bulbocavernosus muscles were identified and brought toward the midline with a single [id number] 0 Vicryl suture and perineum was closed in the usual fashion with running and subcuticular [id number] 2-0 chromic suture. Hemostasis was noted. Mandujano catheter was again opened and clear yellow urine was noted. Vagina was packed with iodoform tape. Patient tolerated the procedure well was taken to recovery room in satisfactory condition; sponge instrument and needle counts were all reportedly correct. Estimated blood loss for the case was 200 cc. Cefotan 2 g IV was given prior to beginning the operative procedure. There were no apparent complications of the surgery. Specimen to pathology was uterus and vaginal mucosa. Grafts/Implants Used: None - Complications None - Admit VTE Documentation VTE Present on Admission: Yes VTE Mechan Device Prophylaxis: SCD's VTE Pharm Prophylaxis ordered?: Yes
--- NOTE | 2020-02-26 10:22 | DCINST_ITS ---
Discharge Diet: No Restrictions Discharge Activity: Return to Normal Activity, May Not Drive - while taking narcotic pain medications., May Shower May resume sexual activity in: 6-8 weeks Call your doctor if your incision/area has: Continuous Slow Oozing, Sudden Increased Bleeding, Increased Pain/ Swelling, Increased Redness, Foul Smelling Discharge Call your doctor if you observe: Fever of 101 or Higher, Inability to urinate, Inability to have a bowel movement, Using more than one pad per hour Allergies/Adverse Reactions: Allergies No Known Allergies Allergy (Verified 02/26/20 05:38) Medications to take at Discharge Biotin 10,000 mcg PO DAILY 01/13/20 Calcium Carb/D3/Magnesium/Zinc [Nmobbca-Cct-Godu-Vit D Tablet] 2 ea PO DAILY 01/13/20 Cholecalciferol (Vitamin D3) [Vitamin D3] 10,000 unit PO DAILY 01/13/20 Lincoln-3/Dha/Epa/Fish Oil [Lincoln 3 500 Softgel] 1 ea PO DAILY 01/13/20 Potassium (Otc) [Potassium Otc] 198 mg PO DAILY 01/13/20 Vit C/E/Zn/Coppr/Lutein/Zeaxan [Preservision Areds 2 Softgel] 1 ea PO DAILY 01/13/20 Vitamin B Complex 2 ea PO DAILY 01/13/20 Vitamin E 1,200 units PO DAILY 01/13/20 aspirin 81 mg tablet,delayed release 81 mg PO DAILY 01/13/20 medroxyprogesterone 10 mg tablet 10 mg PO .COMPLEX 01/15/20 furosemide 20 mg tablet 20 mg PO DAILY #90 tab 01/29/20 Docusate Sodium [Colace] 100 mg PO BID PRN PRN #60 cap 02/26/20 Oxycodone [Oxyir] 5 mg PO Q6H PRN PRN 7 Days #14 tablet 02/26/20 The following prescriptions were given: Docusate Sodium [Colace] 100 mg PO BID PRN PRN #60 cap PRN Reason: Constipation Transmission Status: Pending to [facility] Oxycodone [Oxyir] 5 mg PO Q6H PRN PRN 7 Days #14 tablet PRN Reason: Pain Score 6-10/10 Transmission Status: Sent to [facility] Primary Care Physician: Canvas,Nicki, PERSONNEL PLACEMENT SPECIALIST-C [Primary Care Provider] - Test Results: Test results from this visit will be discussed in further detail at your follow- up appointment, if applicable. Please Follow Up With: Jovanny Mcgee MD When: 2-3 weeks
[2020-02-26] MEDS: Lactated Ringers 1,000 ML 999 ML IV (11:44)
[2020-02-26] MEDS: Dextrose 5%-Lactated Ringers 1,000 ML 150 ML IV ×2 (12:57→20:41)
[2020-02-26] MEDS: HYDROmorphone 0.5 MG/0.5 ML SYRINGE IV (13:02)
[2020-02-26] MEDS: 0.9% Saline Lock 10 ML Syringe IV ×4 (13:03→22:43)
[2020-02-26] MEDS: Furosemide 20 MG Tablet PO (13:04)
[2020-02-26] MEDS: Ketorolac 30 MG/ML Syringe IV ×2 (16:39→22:40)
[2020-02-26] MEDS: Enoxaparin 40 MG/0.4 ML Syringe SC (18:14)
--- NOTE | 2020-02-26 21:32 | NURSING ---
Patient ambulated in hallway with this RN, patient tolerated well.
[2020-02-26] MEDS: oxyCODONE 5 MG Tablet PO (22:40)
[2020-02-27 00:44] VITALS: BMI 45.7
[2020-02-27 00:52] VITALS: BP 104/54; PULSE 54; RESP 16; TEMP 36.6; O2SAT 96
[2020-02-27] MEDS: Dextrose 5%-Lactated Ringers 1,000 ML 150 ML IV ×2 (03:57→09:56)
[2020-02-27] MEDS: 0.9% Saline Lock 10 ML Syringe IV ×3 (03:58→07:34)
[2020-02-27] MEDS: Ketorolac 30 MG/ML Syringe IV ×2 (03:59→09:56)
[2020-02-27 04:05] VITALS: BP 112/53; PULSE 62; RESP 18; TEMP 36.7; O2SAT 93
[2020-02-27 04:07] VITALS: BMI 45.7
[2020-02-27 06:40] LABS: Hematocrit 35.5 % (37-47); Hemoglobin 11.3 g/dL (12.0-15.0); Mean Corp Hgb Conc 31.8 g/dL (32-36); Mean Corpuscular Volume 97.3 fL (81-99); Mean Platelet Vol. 9.5 fl (6.2-12.0); Platelet Count 208 K/mm3 (150-450); RBC Distribution Width SD 46.9 fl (35.1-43.9); Red Blood Count 3.65 M/mm3 (4.2-5.4); White Blood Count 12.7 K/mm3 (4.4-11.0)
[2020-02-27 07:06] LABS: Creatinine, Serum 0.86 mg/dL (0.55-1.02); EST Glomerular Filtration Rate 70 mL/min (>60); Est Glom Filt Rate - Afr Amer 85 mL/min (>60); Estimated Creatinine Clearance 61.05 ml/min
[2020-02-27] MEDS: Acetaminophen 500 MG Tablet 1000 MG PO (07:34)
[2020-02-27 08:44] VITALS: BMI 45.7
[2020-02-27] MEDS: Enoxaparin 40 MG/0.4 ML Syringe SC (09:56)
[2020-02-27] MEDS: Furosemide 20 MG Tablet PO (09:57)
[2020-02-27 10:03] VITALS: BP 115/48; PULSE 51; RESP 17; TEMP 36.8; O2SAT 98
--- NOTE | 2020-02-27 11:22 | PCM.PN.OB ---
Subjective: Patient without complaints. Tolerating diet well. Minimal pain. Denies flatus. Some crampiness since Mandujano catheter was removed. No vaginal bleeding overnight and vaginal pack clear when removed. Objective: Afebrile, vital signs stable. Good urine output. Hemoglobin and creatinine okay. Minimal vaginal bleeding noted. - Physical Exam Vitals/I&O's: Vital Signs Temp Pulse Resp BP Pulse Ox 98.2 F 51 L 17 115/48 L 98 02/27/20 10:03 02/27/20 10:03 02/27/20 10:03 02/27/20 10:03 02/27/20 10:03 Oxygen Delivery Method Room Air Weight: 283 lb 4.704 oz Body Mass Index (BMI) 45.7 Intake and Output for Last 24 Hours 02/25/20 02/26/20 02/27/20 23:59 23:59 23:59 Intake Total 5252.5 / 5252.5 2397.5 / 2397.5 Output Total 1999 / 1999 1850 / 1850 Balance 3252.5 / 3252.5 547.5 / 547.5 Laboratory Results 02/27/20 06:20: WBC 12.7 H, RBC 3.65 L, Hgb 11.3 L, Hct 35.5 L, MCV 97.3, MCH 31.0, MCHC 31.8 L, RDW Std Deviation 46.9 H, RDW Coeff of Tavia 13.0, Plt Count 208, MPV 9.5 02/27/20 06:20: Creatinine 0.86, Estim Creat Clear Calc 61.05, Est GFR (MDRD) Af Amer 85, Est GFR (MDRD) Non-Af 70 Current Medications Acetaminophen (Tylenol) 1,000 mg PO Q8H PRN PRN PRN Reason: Pain Score 1-3/10 or Fever Last Admin: 02/27/20 07:34 Dose: 1,000 mg Documented by: Docusate Sodium (Colace) 100 mg PO BID PRN PRN PRN Reason: Constipation Enoxaparin Sodium (Lovenox) 40 mg SC DAILY [facility] Last Admin: 02/27/20 09:56 Dose: 40 mg Documented by: Furosemide (Lasix) 20 mg PO DAILY [facility] Last Admin: 02/27/20 09:57 Dose: 20 mg Documented by: Hydromorphone HCl (Dilaudid Inj) 0.5 mg IV Q3H PRN PRN PRN Reason: Pain Score 4-10/10 Last Admin: 02/26/20 13:02 Dose: 0.5 mg Documented by: Dextrose/Lactated Ringer's () 1,000 mls @ 150 mls/hr IV .Q6H40M [facility] Last Admin: 02/27/20 09:56 Dose: 150 mls/hr Documented by: Ketorolac Tromethamine (Toradol (Bkc)) 30 mg IV Q6H [facility] Stop: 03/02/20 16:31 Last Admin: 02/27/20 09:56 Dose: 30 mg Documented by: Ondansetron HCl (Zofran) 4 mg IV Q4H PRN PRN PRN Reason: NAUSEA Oxycodone HCl (Oxyir) 5 mg PO Q4H PRN PRN PRN Reason: Pain Score 4-10/10 Last Admin: 02/26/20 22:40 Dose: 5 mg Documented by: Simethicone (Mylicon) 80 mg PO [facility] Last Admin: 02/27/20 09:56 Dose: 80 mg Documented by: Sodium Chloride () 10 - 40 ml IV UD PRN PRN Reason: SALINE FLUSH Last Admin: 02/27/20 07:34 Dose: 10 ml Documented by: Medical Necessity - Tobacco Use Smoking Status: Never smoker Tobacco Use: Non-smoker Assessment/Plan All Active Problems (Last Updated 01/26/20 @ 13:09 by Eden Mclain) Dyspnea on exertion (Acute) Abnormal stress echocardiogram (Acute) Pre-operative cardiovascular exam, new EKG abnormalities c/w ischemia (Acute) Left anterior fascicular block (Acute) Abnormal EKG (Acute) Doing well postoperative day #1 status post vaginal hysterectomy and anterior posterior repair. Will release to home with routine instructions when able to void on own.
== END 2020-02-27 14:55 | disposition home or self-care (01) ==
LOC: SDC 05:27 → AC 05:28 → MS3 08:33
PROVIDERS: Anesthesiology; PCP Nurse Practitioner Family; Referring Provider Obstetrics & Gynecology; Visit Provider Obstetrics & Gynecology
PROC: 0UT94ZZ Resection of Uterus, Percutaneous Endoscopic Approach (ICD-10-PCS; CPT 57260; principal; 2020-02-26 07:10)
DX: D25.0 Submucous leiomyoma of uterus (principal); N72 Inflammatory disease of cervix uteri; N87.0 Mild cervical dysplasia; N85.01 Benign endometrial hyperplasia; N80.0 Endometriosis of uterus; E66.9 Obesity, unspecified; Z68.42 Body mass index [BMI] 45.0-49.9, adult; Z11.59 Encounter for screening for other viral diseases
CPT/HCPCS: 57260; 58260; 80053; 82565; 85027; 86850; 86900; 86901; 87635; 88307; G2023; J7120; A4216; J2405; U0003

== ENCOUNTER → 2020-04-01 20:06 | Outpatient (CLI) | payer MEDICARE, OTHER, SELFPAY ==
[2020-01-15 13:15] VITALS: BMI 45.6
== END ==
PROVIDERS: PCP Nurse Practitioner Family; Referring Provider Internal Medicine Cardiovascular Disease; Visit Provider Internal Medicine Cardiovascular Disease
DX: I44.4 Left anterior fascicular block (principal); G47.10 Hypersomnia, unspecified
CPT/HCPCS: 95810

== ENCOUNTER → 2020-05-11 23:46 | Outpatient (CLI) | payer MEDICARE, OTHER, SELFPAY ==
[2020-04-21 07:37] VITALS: BMI 45.7
== END ==
PROVIDERS: PCP Nurse Practitioner Family; Visit Provider Nurse Practitioner Acute Care
DX: G47.33 Obstructive sleep apnea (adult) (pediatric) (principal)
CPT/HCPCS: 95811